=== PATIENT | male | born 1985 | race Hispanic/Latino ===

== ENCOUNTER 2016-12-26 01:17 | Observation (INO) | payer SELFPAY ==
--- NOTE | 2016-12-26 01:19 | ED PDOC ---
Arrival/HPI - General Time Seen by Provider: 12/26/16 01:18 Historian: Patient, EMS - History of Present Illness Narrative History of Present Illness (Text): 12/26/16 01:18 Joe Danielle is a 31 year old male who presents to the Emergency department brought in by EMS for alcohol intoxication tonight. Patient denies any chest pain, nausea, vomiting, back pain, neck pain, headache, dizziness, or any other complaints. Time/Duration: Other (tonight) Symptom Onset: Gradual Symptom Course: Unchanged Activities at Onset: Light Past Medical History - Provider Review Nursing Documentation Reviewed: Yes Family/Social History - Physician Review Nursing Documentation Reviewed: Yes Family/Social History: Unknown Family HX Allergies/Home Meds Allergies/Adverse Reactions: Allergies No Known Allergies Allergy (Verified 12/26/16 01:20) Home Medications: Home Meds Medication Instructions Recorded Confirmed Unobtainable 12/26/16 12/26/16 Review of Systems - Physician Review All systems were reviewed & negative as marked: Yes - Review of Systems Constitutional: Normal. absent: Fevers Eyes: Normal ENT: Normal Respiratory: Normal. absent: SOB, Cough Cardiovascular: Normal. absent: Chest Pain Gastrointestinal: Normal. absent: Abdominal Pain, Diarrhea, Nausea, Vomiting Genitourinary Male: Normal. absent: Dysuria, Frequency, Hematuria, Urinary Output Changes Musculoskeletal: Normal. absent: Back Pain, Neck Pain Skin: Normal. absent: Rash Neurological: Normal. absent: Headache, Dizziness Endocrine: Normal Hemo/Lymphatic: Normal Psychiatric: Normal Physical Exam Vital Signs Reviewed: Yes Vital Signs Temp Pulse Resp BP Pulse Ox 12/26/16 06:31 90 18 128/63 98 12/26/16 03:29 98.5 F 79 18 135/69 96 12/26/16 01:28 98.5 F 71 17 123/51 L 95 Temperature: Afebrile Blood Pressure: Normal Pulse: Regular Respiratory Rate: Normal Appearance: Positive for: Well-Appearing, Comfortable Pain Distress: None Mental Status: Positive for: Alert and Oriented X 3 - Systems Exam Head: Present: Atraumatic, Normocephalic Pupils: Present: PERRL Extroacular Muscles: Present: EOMI Conjunctiva: Present: Normal Mouth: Present: Moist Mucous Membranes Neck: Present: Normal Range of Motion Respiratory/Chest: Present: Clear to Auscultation, Good Air Exchange. No: Respiratory Distress, Accessory Muscle Use Cardiovascular: Present: Regular Rate and Rhythm, Normal S1, S2. No: Murmurs Abdomen: Present: Normal Bowel Sounds. No: Tenderness, Distention, Peritoneal Signs Back: Present: Normal Inspection Upper Extremity: Present: Normal Inspection. No: Cyanosis, Edema Lower Extremity: Present: Normal Inspection. No: Edema Neurological: Present: GCS=15, CN II-XII Intact, Speech Normal Skin: Present: Warm, Dry, Normal Color. No: Rashes Psychiatric: Present: Alert, Oriented x 3, Normal Insight, Normal Concentration Medical Decision Making ED Course and Treatment: 12/26/16 01:18 Impression: 31 year old male brought in for alcohol intoxication. Differential Diagnosis included but are not limited to: alcohol intoxication Plan: -- Reassess and disposition Progress Notes: Re-evaluation Time: 06:36 Reassessment Condition: Re-examined, Improved ED OBSERVATION Discharge: Yes Date of observation admission: 12/26/16 Time of observation admission: 01:28 - Observation admission statement Patient is being placed in observation because:: alcohol intoxication - Goals of Observation Goals of observation are:: sobriety - Progress Note Progress Note: 12/26/16 01:28 Pt brought in for alcohol intoxication. Will observe until morning, pending sobriety. 12/26/16 02:19 Pt resting comfortably, no new complaints. 12/26/16 04:19 Pt sleeping currently, in no acute distress. 12/26/16 06:19 Pt resting comfortably, no new complaints. 12/26/16 06:32 Pt awake, alert, ambulating with steady gait. Clinically sober. Pt stable for d/ c. - Scribe Statement The provider has reviewed the documentation as recorded by the Phyllis Espinoza Provider Scribe Attestation: All medical record entries made by the Scribtess were at my direction and personally dictated by me. I have reviewed the chart and agree that the record accurately reflects my personal performance of the history, physical exam, medical decision making, and the department course for this patient. I have also personally directed, reviewed, and agree with the discharge instructions and disposition. Disposition/Present on Arrival - Present on Arrival Any Indicators Present on Arrival: No - Disposition Have Diagnosis and Disposition been Completed?: Yes Diagnosis: Alcohol abuse Disposition: HOME/ ROUTINE Disposition Time: 06:37 Condition: GOOD
[2016-12-26 01:21] VITALS: BMI 23.0
[2016-12-26 01:29] VITALS: TEMP 98.5
[2016-12-26 03:30] VITALS: RESP 18
[2016-12-26 06:33] VITALS: BP 128/63; PULSE 90; O2SAT 98
== END 2016-12-26 06:42 | disposition home or self-care (01) ==
LOC: ED 01:17 → EROBSV 01:28
PROVIDERS: ADMIT Emergency Medicine; ATTEND Emergency Medicine
DX: F10.129 Alcohol abuse with intoxication, unspecified (principal)
CPT/HCPCS: 99283; G0378